=== PATIENT | female | born 1960 | race Caucasian/White ===

== ENCOUNTER → 2021-03-30 | Outpatient (CLI) | payer OTHER ==
[~2021-03-30] MED LIST: ACET325 PO; DOCU100 PO; NAPR220 PO; PYRI100 PO; XARELTO15 MG PO
== END | disposition home or self-care (01) ==
LOC: LAB SHORT 10:42
DX: D22.5 Melanocytic nevi of trunk (principal)
CPT/HCPCS: 88305

== ENCOUNTER 2022-05-31 08:23 | Day surgery (SDC) | payer BC ==
[~2022-05-31] VITALS: Ht 167.6 cm; Wt 90.4 kg
[2022-05-31] MEDS ORDERED: FAMO10 (09:09)
== END 2022-05-31 10:31 | disposition home or self-care (01) ==
LOC: ORSCSDS 08:23
PROVIDERS: Internal Medicine Gastroenterology
PROC: 0DBK8ZX Excision of Ascending Colon, Via Natural or Artificial Opening Endoscopic, Diagnostic (ICD-10-PCS; principal; 2022-05-31 09:45)
DX: Z12.11 Encounter for screening for malignant neoplasm of colon (principal); Z80.0 Family history of malignant neoplasm of digestive organs; D12.2 Benign neoplasm of ascending colon; K21.9 Gastro-esophageal reflux disease without esophagitis; E66.9 Obesity, unspecified; Z68.32 Body mass index [BMI] 32.0-32.9, adult; Z79.899 Other long term (current) drug therapy
CPT/HCPCS: 88305; J2704; J7120

== ENCOUNTER → 2023-01-17 | Outpatient (CLI) | payer BC ==
[~2023-01-17] MED LIST changes: +FAMO10
== END | disposition home or self-care (01) ==
LOC: LAB 17:31 → LAB SHORT 17:31
DX: N39.0 Urinary tract infection, site not specified (principal)
CPT/HCPCS: 87086

== ENCOUNTER → 2023-02-13 | Outpatient (CLI) | payer BC ==
[2023-02-13 15:21] LABS: Source, Urine Clean Catch
[2023-02-13 16:53] LABS: Appearance, Urine Turbid (Clear); Bilirubin, Urine Neg (Neg); Blood, Urine 5+ (Neg); Color, Urine Yellow (P-Yellow); Glucose Qualitative, Urine Neg (Neg); Ketones, Urine Neg (Neg); Leukocyte Esterase, Urine 3+ (Neg); Nitrite, Urine Neg (Neg); Protein, Urine 2+ (Neg); Specific Gravity, Urine 1.025 (1.003-1.022); Urobilinogen, Urine NORM (Normal)
[2023-02-13 17:03] LABS: Red Blood Cells, Urine TNTC /hpf (0-2); Squamous Epithelial Cells Few /hpf (Few); White Blood Cells, Urine TNTC /hpf (0-5)
[2023-02-13 17:08] LABS: Amorphous Heavy (0-Heavy)
[2023-02-13 17:09] LABS: Bacteria Few /hpf
[2023-02-13 17:10] LABS: Calcium Oxalate Crystals Few /hpf
== END | disposition home or self-care (01) ==
LOC: LAB 15:17 → LAB SHORT 15:17
PROVIDERS: Family Medicine
DX: N39.0 Urinary tract infection, site not specified (principal)
CPT/HCPCS: 81001; 87086

== ENCOUNTER → 2024-02-06 | Outpatient (CLI) | payer BC ==
[~2024-02-06] MED LIST changes: +IBUP800 PO; +XARELTO20 MG PO
== END | disposition home or self-care (01) ==
LOC: LAB 12:00 → LAB SHORT 12:00
DX: N39.0 Urinary tract infection, site not specified (principal)
CPT/HCPCS: 87077; 87086; 87186